=== PATIENT | male | born 1940 | race Caucasian/White ===

== ENCOUNTER 2018-05-29 13:56 | Emergency (ER) | payer MEDICARE, OTHER ==
[2018-05-29] MEDS ORDERED: cefTRIAXone(*) 1 GM in NS 0.9% 50 ML* 50 ML IVPB ONE (14:29)
[2018-05-29] MEDS ORDERED: NS 0.9% 1000 ML** 1,000 ML IV.FLUID IV ONE (14:29)
--- NOTE | 2018-05-29 14:30 | ED ---
Abdominal Pain/Male - HPI Summary HPI Summary: This patient is a 77 year old M presenting to [facility] accompanied by family with a chief complaint epigastric pain radiating to RUQ that began approximately 3 days ago. The patient rates the pain 4/10 in severity. Symptoms aggravated by nothing. Symptoms alleviated by nothing. Patient reports malaise, weakness, rigors, chills, dark orange urine, and slight cough. Patient denies dysuria, diarrhea, nasal discharge and sore throat. - History of Current Complaint Chief Complaint: EDFluSymptoms Stated Complaint: CHILLS, FEVER,COUGH Time Seen by Provider: 05/29/18 14:16 Hx Obtained From: Patient Onset/Duration: Sudden Onset, Lasting Days, Still Present Timing: Constant Severity Initially: Moderate Severity Currently: Moderate Pain Intensity: 4 Pain Scale Used: 0-10 Numeric Location: Epigastric Radiates: Yes Radiates to: Other - RUQ Aggravating Factor(s): Nothing Alleviating Factor(s): Nothing Associated Signs And Symptoms: Positive: Other - Positive malaise, pain, rigors , chills, and dark orange urine - Allergies/Home Medications Allergies/Adverse Reactions: Allergies Allergy/AdvReac Type Severity Reaction Status Date / Time meprobamate Allergy Intermediate Rash Verified 05/29/18 14:37 tetracycline Allergy Unknown Unknown Verified 05/29/18 14:37 Reaction Details chlordiazepoxide Allergy Unknown Verified 05/29/18 14:07 [From Librium] Reaction Details Home Medications: Home Medications Aspirin 81 mg CHEW TAB* [Aspirin Low Dose TAB*] 81 mg PO DAILY 05/29/18 [ History Confirmed 05/29/18] Saw Wildwood Fruit [Saw Wildwood] 450 mg PO DAILY 05/29/18 [History Confirmed ] PMH/Surg Hx/FS Hx/Imm Hx Previously Healthy: Yes Cardiovascular History: Denies: Hx Pacemaker/ICD Musculoskeletal History: Denies: Hx Rheumatoid Arthritis, Hx Osteoporosis Sensory History: Denies: Hx Hearing Aid Psychiatric History: Denies: Hx Panic Disorder - Surgical History Surgery Procedure, Year, and Place: RUPTURED EAR DRUM SURGERY A CHILD. CLEFT PALATE. T&A. APPENDIX. RT KNEE SURGERY 1970. RT CARPAL TUNNEL . RT INGUINAL HERNIA REPAIR . RT SHOULDER EXPLORATORY SURGERY . LT CARPAL TUNNEL 4-5 YRS AGO Infectious Disease History: No Infectious Disease History: Denies: Traveled Outside the [place] in Last 30 Days - Family History Known Family History: Positive: Other - Colon polyps - Social History Occupation: Retired Lives: With Family Review of Systems Positive: Other - Positive malaise Negative: Sore Throat, Nasal Discharge Positive: Cough Positive: Abdominal Pain. Negative: Diarrhea Genitourinary: Other - Positive dark orange urine Negative: dysuria Positive: Other - Positive rigors Positive: Weakness All Other Systems Reviewed And Are Negative: Yes Physical Exam - Summary Physical Exam Summary: VITAL SIGNS: Reviewed. GENERAL: Patient is a well-developed and nourished male who is lying comfortable in the stretcher. Patient is not in any acute respiratory distress. HEAD AND FACE: No signs of trauma. No ecchymosis, hematomas or skull depressions. No sinus tenderness. EYES: PERRLA, EOMI x 2, No injected conjunctiva, no nystagmus. EARS: Hearing grossly intact. Ear canals and tympanic membranes are within normal limits. MOUTH: Oropharynx within normal limits. Oral mucosa is completely dry. Pharynx has slight erythema but no exudate. NECK: Supple, trachea is midline, no adenopathy, no JVD, no carotid bruit, no c- spine tenderness, neck with full ROM. CHEST: Symmetric, no tenderness at palpation LUNGS: Clear to auscultation bilaterally. No wheezing or crackles. CVS: Regular rate and rhythm, S1 and S2 present, no murmurs or gallops appreciated. ABDOMEN: Soft, Tenderness in epigastric area. No signs of distention. No rebound no guarding, and no masses palpated. Bowel sounds are normal. EXTREMITIES: FROM in all major joints, no edema, no cyanosis or clubbing. NEURO: Alert and oriented x 3. No acute neurological deficits. Speech is normal and follows commands. SKIN: Dry and warm Triage Information Reviewed: Yes Vital Signs On Initial Exam: Initial Vitals Temp Pulse Resp BP Pulse Ox 101.6 F 98 25 105/63 98 05/29/18 14:03 05/29/18 14:03 05/29/18 14:03 05/29/18 14:03 05/29/18 14:03 Vital Signs Reviewed: Yes Diagnostics - Vital Signs Vital Signs Temp Pulse Resp BP Pulse Ox 05/29/18 14:03 101.6 F 98 25 105/63 98 - Laboratory Result Diagrams: 05/29/18 14:44 05/29/18 14:44 Lab Statement: Any lab studies that have been ordered have been reviewed, and results considered in the medical decision making process. - Radiology Chest XR Radiology Interpretation Completed By: Radiologist Summary of Radiographic Findings: CXR reveals, per radiologist, low lung volumes , small bibasilar infiltrates. ED physician has reviewed this radiology report. - EKG 1435 Cardiac Rate: Tachycardia EKG Rhythm: Sinus Rhythm - 102 BPM Summary of EKG Findings: An EKG taken at 1438 reveals sinus tachycardia at 102 BPM with RBBB. - Additional Comments Diagnostic Additional Comments: Abdomen US reveals, per radiologist, 1. CHOLELITHIASIS, SLUDGE AND GALLBLADDER WALL THICKENING, THE POSSIBILITY OF ACUTE CHOLECYSTITIS CANNOT BE EXCLUDED. 2. INTRA AND EXTRAHEPATIC DUCTAL DISTENTION AND MILD PANCREATIC DUCTAL DISTENTION WORRISOME FOR A PANCREATIC MASS OR A CALCULUS IN THE DISTAL COMMON BILE DUCT. RECOMMEND A THREE-PHASE CONTRAST ENHANCED CT OF THE ABDOMEN FOR FURTHER EVALUATION. ED physician has reviewed this radiology report. Abdominal Pain Fem Course/Dx - Course Assessment/Plan: This patient is a 77-year-old male who presents to the emergency department with a chief complaint of having epigastric pain about 3 days ago which is subsided and the pain radiated to the right rib cage area. He also reports that Wednesday night and Wednesday night the patient developed rigors and possibly a fever. He has been having runny nose and body aches. She denies any cough, denies any diarrhea denies any urinary symptoms. His vital signs alert for sepsis therefore we started the sepsis protocol. The patient was started on IV fluids 30 ccs per KG, since he seems to be a respiratory issue patient also was given Rocephin for antibiotics. This was given after we obtained blood cultures. Blood work without any significant abnormality except for fibrinogen of 639, sodium 133, chloride 100, BUN is 36, creatinine is 1.42, glucose 140, lactic acid is 2.1, total bili 7.4, AST 128, AST 224, alkaline phosphatase is 191. CRP is 216 and total protein 6.3. Influenza A any B is negative. CXR impresion: Low lung volumes, small bibasilar infiltrates. Patients LFTs are increase and reexamined the patient and he has mild right upper quadrant pain therefore, I decided to do a viral upper quadrant ultrasound. The patient also was given an additional liter of IV fluids. I started the patient is Zosyn to cover for an abdominal infection. Right upper quadrant ultrasound impression: Cholelithiasis, sludge and gallbladder wall thickening. Possibility of an acute cholecystitis cannot be excluded. Rika and extrahepatic ductal distention and mild pancreatic ductal distention and worrisome for a pancreatic mass or calculus in the distal common bile duct. At this point I discussed my physical exam and findings with and Dr. Matias from surgery and he recommends an ERCP. I also discussed the case with Dr. Avina and she is unable to do the ERCP. Therefore I contacted [facility] and discussed the case with Dr. Resendiz hand cloth examiner and he agrees to accept the patient to his services. Before transfer the patients blood pressure decreased after 5 L of IV fluids, therefore we started on Levophed. Dr. Hall the ER attending was able to place a central line to and Levophed was continued. At this point the patient will be transferred via helicopter. Patient and patients and agrees with the transfer. Patient is mentating well and is still alert and oriented 3. The patient is to hypotensive but he is in no epinephrine. - Diagnoses Differential Diagnosis/HQI/PQRI: Gall Bladder Disease, Pneumonia, Urinary Tract Infection, Other - Cholecystitis, Cholangitis, Pancreatitis Provider Diagnoses: Cholangitis, Cholecystitis, Pancreatitis - Provider Notifications Discussed Care Of Patient With: Sam Cagle Time Discussed With Above Provider: 17:10 Instructed by Provider To: Other - Consult with Dr. Cagle (surgery) at 1709. He requested an emergency ERCP. Consult with Dr. Avina (GI) at 1713. She agreed the patient needs an emergency ERCP, but she does not do them. Consult with Dr. Umana (ICU attending at [facility]) at 1820. He agrees to accept the patient for transfer. - Critical Care Time Critical Care Time: 75-104 min Discharge - Sign-Out/Discharge Documenting (check all that apply): Patient Departure - Transfer to [facility] Patient Received Moderate/Deep Sedation with Procedure: No - Discharge Plan Condition: Stable Disposition: TRANS HIGHER LVL OF CARE FAC Referrals: Chaparrita Scales MD [Primary Care Provider] - - Billing Disposition and Condition Condition: STABLE Disposition: Trans Higher Lvl of Care Fac - Attestation Statements Document Initiated by Scribe: Yes Documenting Scribe: Jo-Ann Mccrary Provider For Whom Scribe is Documenting (Include Credential): Dr. Neno Winter MD Scribe Attestation: I, Jo-Ann Mccrary, scribed for Dr. Neno Winter MD on 05/29/18 at 1909. Scribe Documentation Reviewed: Yes Provider Attestation: The documentation as recorded by the scribeJo-Ann accurately reflects the service I personally performed and the decisions made by me, Dr. Neno Winter MD Status of Scribe Document: Viewed
[2018-05-29 14:55] LABS: ABS Basophils 0 10^3/ul (0-0.2); ABS Eosinophils 0 10^3/ul (0-0.6); ABS Lymphocytes 0.2 10^3/ul (1.0-4.8); ABS Monocytes 0 10^3/ul (0-0.8); ABS Neutrophils 3.9 10^3/ul (1.5-7.7); ABS Nucleated RBC 0 10^3/ul; Eosinophil % 0.1 %; Hematocrit 41 % (42-52); Hemoglobin 14.3 g/dl (14.0-18.0); Lymphocyte % 4.2 %; Mean Corpuscular HGB Conc 35 g/dl (31-36); Mean Corpuscular Hemoglobin 31 pg (27-31); Mean Corpuscular Volume 90 fL (80-94); Mean Platelet Volume 7.8 fL (7.4-10.4); Nucleated Red Blood Cells % 0.1; Platelet Count 195 10^3/ul (150-450); Red Blood Count 4.59 10^6/ul (4.00-5.40); Red Cell Distribution Width 14 % (10.5-15); White Blood Count 4.1 10^3/ul (3.5-10.8)
[2018-05-29 15:09] LABS: Influenza A Molecular NEGATIVE (Negative); Influenza B Molecular NEGATIVE (Negative)
[2018-05-29 15:13] LABS: Activated Partial Thrombo Time 29.7 seconds (26.0-36.3); Fibrinogen 689.8 mg/dL (110.8-404.3); INR 1.38 (0.77-1.02)
[2018-05-29 15:16] LABS: Albumin 3.7 g/dL (3.2-5.2); Albumin/Globulin Ratio 1.4 (1-3); BUN/Creatinine Ratio 25.4 (8-20); C Reactive Protein 216.08 mg/L (<8.01); Calcium 9.9 mg/dL (8.6-10.3); EGFR African American 58.3 (>60); EGFR Non-African American 48.2 (>60); Globulin 2.6 g/dL (2-4); Potassium 4.3 mmol/L (3.5-5.0); Total Bilirubin 7.4 mg/dL (0.2-1.0); Total Protein 6.3 g/dL (6.4-8.9)
[2018-05-29 15:17] LABS: Troponin I 0.02 ng/mL (<0.04)
[2018-05-29] MEDS ORDERED: Ibuprofen TAB* 800 MG PO ONE (15:28)
[2018-05-29 16:13] LABS: Erythrocyte Sed Rate 49 mm/Hr (0-40)
[2018-05-29] MEDS ORDERED: Piperacillin/Tazobac ADVAN(*) 3.375 GM in NS 0.9% 100 ML* 100 ML IVPB ONE (16:14)
[2018-05-29] MEDS ORDERED: Piperacillin/Tazobac (*) 3.375 GM BAG ONE (16:27)
[2018-05-29] MEDS ORDERED: NS 0.9% 1000 ML** 1,000 ML IV ONE ×2 (16:55→18:49)
[2018-05-29 16:59] LABS: Urine Appearance Cloudy; Urine Bacteria Absent (Absent); Urine Bilirubin 2+ (Negative); Urine Blood 1+ (Negative); Urine Color Amber; Urine Glucose Negative (Negative); Urine Ketones Negative (Negative); Urine Nitrite Negative (Negative); Urine Protein 1+(30 mg/dL) (Negative); Urine Red Blood Cell Trace(0-2/hpf) (Absent); Urine Specific Gravity 1.017 (1.010-1.030); Urine Squamous Epithelial Cell Present (Absent); Urine Urobilinogen Positive (Negative); Urine White Blood Cell 2+(11-20/hpf) (Absent)
[2018-05-29] MEDS ORDERED: NS 0.9% 1000 ML** 2,000 ML IV ONE (17:46)
[2018-05-29] MEDS ORDERED: Norepinephrine 16MCG/ML IVPRE* 4,000 MCG/250 ML BAG IV ONE ×2 (17:51→18:00)
[2018-05-29] MEDS ORDERED: Vasopressin* 100 UNITS in D5W 250 ML BAG* 245 ML IVPB SCH ×4 (19:00)
--- NOTE | 2018-05-29 19:04 | CONSULT ---
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 After gowning and gloving, the patient was prepped and draped over the right internal jugular vein. Ultrasound was used to locate the vein in the artery or vein was noted to be compressible lateral and anterior to the artery. The vein was entered easily after numbing the skin using an 18-gauge needle. However I was unable to pass the Seldinger wire on 2 tries. I went slightly inferior on the third try and the wire passed easily a triple lumen was then passed over the line, sutured in place and dressed. He tolerated the procedure very well however his pressure did remain low and he remained mildly tachycardic. He was awake and alert the whole time and conversant in no apparent distress. Diagnosis Central line placement.
[2018-05-29 19:33] VITALS: BP 74/62
--- NOTE | 2018-05-29 23:08 | PN ---
Progress Note - Progress Note Date of Service: 05/29/18 Note: got call from [facility] at 11:05pm that preliminary culture positive for gram neg bacilli. patient was just transferred to [facility]. will have Rosaline fax results to [facility].
== END 2018-05-29 19:36 | disposition short-term general hospital (02) ==
LOC: ED 13:56
DX: K83.09 Other cholangitis (principal); K81.9 Cholecystitis, unspecified; K85.90 Acute pancreatitis without necrosis or infection, unspecified; I45.10 Unspecified right bundle-branch block; R00.0 Tachycardia, unspecified
CPT/HCPCS: 36415; 71046; 76705; 80053; 81003; 81015; 82150; 82248; 82550; 83605; 83690; 83880; 84484; 85025; 85384; 85610; 85652; 85730; 86140; 87040; 87077; 87086; 87186; 87205; 93005; 96361; 96374; 96375; 99285; A9270-GY; J0696; J2543

== ENCOUNTER 2018-06-09 08:13 | Inpatient (IN) | payer MEDICARE, OTHER ==
[2018-06-09] MEDS ORDERED: Acetaminophen TAB* 325 MG PO PRN (13:02)
[2018-06-09] MEDS ORDERED: Senna TAB PO PRN (13:02)
--- NOTE | 2018-06-09 14:45 | HP ---
ADMISSION HISTORY AND PHYSICAL: DATE OF ADMISSION: 06/09/18 REASON FOR ADMISSION: Septic shock secondary to ascending cholangitis. HISTORY OF PRESENT ILLNESS: Lux Urbina is a 77-year-old male. He has a medical history significant for BPH and arthritis. He presented to [facility] on 05/29/18 complaining of abdominal pain and several days of fever. He was found to be septic and transferred to [facility]. He required pressor support. He was taken to the operating room for an ERCP during which he had a pulseless electrical activity arrest with return of spontaneous circulation achieved in 10 minutes with CPR and epinephrine. Following that, they went through with the ERCP. A large common bile duct stone was removed and pus from the ampulla was drained and a biliary stent was placed. Blood cultures prior to transfer had been positive for Klebsiella and he was placed on IV Zosyn. He was transferred to the medical floor on . However, during his ICU stay, he had acute kidney injury and hepatic injury likely secondary to the combination of the septic shock and PEA arrest. His liver function tests and creatinine generally improved. He was found on echo to have an ejection fraction of 30% on 05/30/18, but repeat echo several days later showed an ejection fraction of 45%. Cardiology was consulted and they recommended a nuclear stress test as an outpatient. He was also found to have C. diff on 06/06/18 and was started on p.o. vancomycin. The infectious disease service at [facility] recommended IV Zosyn until 06/08/18 and that was discontinued and then to remain on oral vancomycin until 06/17/18. He was seen by Physical Therapy and Occupational Therapy and felt to be weakened from the hospitalization. It was felt that he would need inpatient rehab. Also of note is it was recommended that the patient have a cholangiogram done by Interventional Radiology in 4 weeks and evaluation by a surgeon for possible cholecystectomy in 4 weeks after his cholangiogram. He will also need an ERCP for the biliary stent removal in 6 weeks. PAST MEDICAL HISTORY: Significant for arthritis as well as prostatic hypertrophy. CURRENT MEDICATIONS: Include: 1. Flomax. 2. VESIcare. 3. Zocor. 4. Prevacid. 5. He is also on Flovent. 6. Baby aspirin every day. 7. Heparin for DVT prophylaxis. ALLERGIES: Include MEPROBAMATE as well as TETRACYCLINE. SOCIAL HISTORY: He is a nonsmoker, nondrinker. Lives with his , Mallory, in a 2-story house. He has 2 children, one of whom lives in [facility] and the other one who lives in the [place]. 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 REVIEW OF SYSTEMS: The patient reports no current shortness of breath or chest pain. PHYSICAL EXAMINATION VITAL SIGNS: The patient's temperature is 98.0, blood pressure is 147/79, pulse 57, respirations 16. HEENT: His extraocular movements are intact. Tongue is midline. NECK: Supple. LUNGS: Sound clear to auscultation bilaterally. HEART: Sounds were regular. S1 and S2 were audible. ABDOMEN: He does have a cholecystostomy tube. Abdomen appears to be soft. EXTREMITIES: He has got 1+ edema in both feet. Peripheral pulses were intact. NEUROLOGIC: He is awake, alert, oriented. Muscle strength appears to be about 4+/5 throughout. FUNCTIONAL EXAM: He transfers with min assist. ASSESSMENT: Septic shock secondary to ascending cholangitis. Status post ERCP. His course was complicated by a pulseless electrical activity arrest with return of spontaneous circulation after CPR and epinephrine. PLAN: Integrate him into a comprehensive and therapeutic rehab program with the following goals: 1. Physical Therapy will see the patient. They are going to work on functional transfer training, ambulation training with a walker. 2. Occupational Therapy will see the patient, work on his activities of daily living including toileting and toilet transfers. 3. Heparin for DVT prophylaxis. 4. Follow his LFTs as well as his renal function. 5. Regular diet. His bowels will be regulated. 6. For his C. diff, we will continue oral vancomycin. 7. We will continue baby aspirin every day. We will consult Cardiology as needed. 8. fiscal services manager will be closely involved to make sure that any services and equipment the patient requires are in place prior to discharge. 9. Family training as appropriate. 10. Home with appropriate services. ESTIMATED LENGTH OF STAY: 10 days. [id number]/[facility] #: [id number] JOSE ROBERTO
--- NOTE | 2018-06-09 14:56 | PMRUTEAM ---
PMRU: Team Meeting Current Status: Occupational Therapy: Current Status Upper Body Dressing Min Assist Lower Body Dressing Mod Assist Bathing Min Assist,Mod Assist Toileting Contact Guard Assist Toilet Transfer Contact Guard Assist Eating Ind with Adaptive Equip PHYSICAL THERAPY: CG Transfers, CG Ambulation with FWW 200 feet CG-Min Assist Stairs, Min Assist Bed mobility Goals: Occupational Therapy: Initial Goals Goals to be Completed in (Days 7-10 ) Upper Body Bathing Routine Modified Independent with Lower Body Bathing Routine Modified Independent with Upper Body Dressing Routine Independent Lower Body Dressing Routine Modified Independent with Toilet Hygeine and Clothing Modified Independent with Management Routine Toilet Transfer Routine Modified Independent with Tub Transfer Routine Modified Independent with Functional Transfers for ADL Modified Independent with Grooming Routine Independent Feeding Routine Independent Light Housekeeping Tasks Modified Independent with Light Housekeeping Tasks light meal prep with Isadora Assistive Devices Medicine Note: Length of Stay: 7 days Anticipated Discharge Destination: Tentative Discharge Date: 06/16/18 Discharged to: Home
[2018-06-09] MEDS: Heparin VIAL(*) 5000 UNITS/ML VIAL (FIVE THOUSAND) SUBCUT SCH (16:36)
[2018-06-09] MEDS: Vancomycin CAP* 125 MG CAP PO SCH ×2 (16:40→20:57)
[2018-06-09] MEDS: Atorvastatin* 10 MG TAB PO SCH (16:40)
[2018-06-09] MEDS ORDERED: Albuterol HFA INHALER* 8 gm MDI INH PRN (20:22)
[2018-06-09] MEDS: Mometasone 220 MCG MDI INH SCH (20:57)
[2018-06-09] MEDS: Docusate CAP* 100 MG PO SCH (21:29)
[2018-06-10] MEDS: Ibuprofen TAB* 200 MG PO PRN ×2 (00:05→21:54)
[2018-06-10] MEDS: Heparin VIAL(*) 5000 UNITS/ML VIAL (FIVE THOUSAND) SUBCUT SCH ×4 (00:10→21:56)
[2018-06-10] MEDS: Zolpidem TAB* 10 MG PO PRN ×2 (00:18→21:55)
[2018-06-10 05:48] LABS: ABS Basophils 0 10^3/ul (0-0.2); ABS Eosinophils 0.3 10^3/ul (0-0.6); ABS Lymphocytes 1.5 10^3/ul (1.0-4.8); ABS Monocytes 1.3 10^3/ul (0-0.8); ABS Neutrophils 7.2 10^3/ul (1.5-7.7); ABS Nucleated RBC 0 10^3/ul; Eosinophil % 2.9 %; Hematocrit 35 % (42-52); Hemoglobin 11.3 g/dl (14.0-18.0); Lymphocyte % 14.5 %; Mean Corpuscular HGB Conc 33 g/dl (31-36); Mean Corpuscular Hemoglobin 31 pg (27-31); Mean Corpuscular Volume 94 fL (80-94); Mean Platelet Volume 8.1 fL (7.4-10.4); Nucleated Red Blood Cells % 0; Platelet Count 188 10^3/ul (150-450); Red Blood Count 3.67 10^6/ul (4.00-5.40); Red Cell Distribution Width 15 % (10.5-15); White Blood Count 10.4 10^3/ul (3.5-10.8)
[2018-06-10 05:58] LABS: Albumin 2.7 g/dL (3.2-5.2); CO2 Carbon Dioxide 21 mmol/L (22-32); Calcium 8.8 mg/dL (8.6-10.3); Chloride 108 mmol/L (101-111); Sodium 137 mmol/L (135-145)
[2018-06-10 06:04] LABS: ALT 32 U/L (7-52); Albumin/Globulin Ratio 1.2 (1-3); Alkaline Phosphatase 81 U/L (34-104); BUN/Creatinine Ratio 23.3 (8-20); Blood Urea Nitrogen 24 mg/dL (6-24); EGFR African American 84.5 (>60); EGFR Non-African American 69.8 (>60); Globulin 2.2 g/dL (2-4); Glucose 95 mg/dL (70-100); Total Protein 4.9 g/dL (6.4-8.9)
[2018-06-10 06:06] LABS: Anion Gap 8 mmol/L (2-11)
[2018-06-10 07:39] LABS: Potassium Redraw 4.2 mmol/L (3.5-5.0)
[2018-06-10] MEDS: SOLIFENACIN 10 MG PO SCH (08:08)
[2018-06-10] MEDS: Tamsulosin CAP* 0.4 MG PO SCH (08:13)
[2018-06-10] MEDS: Vancomycin CAP* 125 MG CAP PO SCH ×4 (08:13→21:54)
[2018-06-10] MEDS: Aspirin EC TAB* 81 MG TAB.EC PO SCH (08:13)
[2018-06-10] MEDS: Pantoprazole TAB * 40 MG TAB PO SCH (08:13)
[2018-06-10] MEDS: Docusate CAP* 100 MG PO SCH ×2 (08:18→21:54)
--- NOTE | 2018-06-10 10:43 | PN ---
Subjective Date of Service: 06/10/18 Interval History: HOSPITALIST PROGRESS NOTE Patient seen and examined at bedside. Care reviewed and d/w Jo-Ann Rowe RN. He feels well today, "improving everyday". Able to sleep from 1 to 7AM without interruptions, food "tastes good again". Denies pain. Family History: Unchanged from Admission Social History: Unchanged from Admission Past Medical History: Unchanged from Admission Objective Active Medications: Acetaminophen (Tylenol Tab*) 650 mg PO Q6H PRN PRN Reason: FEVER/PAIN Albuterol (Ventolin Hfa Inhaler*) 2 puff INH Q6H PRN PRN Reason: WHEEZING Aspirin (Aspirin Ec Tab*) 81 mg PO DAILY [facility] Last Admin: 06/10/18 08:13 Dose: 81 mg Atorvastatin Calcium (Lipitor*) 15 mg PO 1700 [facility] Last Admin: 06/09/18 16:40 Dose: 15 mg Docusate Sodium (Colace Cap*) 100 mg PO BID [facility] Last Admin: 06/10/18 08:18 Dose: Not Given Heparin Sodium (Porcine) (Heparin Vial(*)) 5,000 units SUBCUT Q8HR [facility] Last Admin: 06/10/18 05:15 Dose: 5,000 units Ibuprofen (Advil Tab*) 200 mg PO Q6H PRN PRN Reason: PAIN Last Admin: 06/10/18 00:05 Dose: 200 mg Mometasone Furoate (Asmanex 220 Mcg Mdi *) 1 puff INH DAILY@1900 [facility] Last Admin: 06/09/18 20:57 Dose: 1 puff Pantoprazole Sodium (Protonix Tab*) 40 mg PO DAILY [facility] Last Admin: 06/10/18 08:13 Dose: 40 mg Senna (Senokot Tab*) 2 tab PO BEDTIME PRN PRN Reason: CONSTIPATION Solifenacin (Vesicare(Nf)) 10 mg PO DAILY [facility] Last Admin: 06/10/18 08:08 Dose: Not Given Tamsulosin HCl (Flomax Cap*) 0.4 mg PO DAILY [facility] Last Admin: 06/10/18 08:13 Dose: 0.4 mg Vancomycin HCl (Vancomycin Cap*) 125 mg PO QID [facility] Stop: 06/17/18 23:00 Last Admin: 06/10/18 08:13 Dose: 125 mg Zolpidem Tartrate (Ambien Tab*) 10 mg PO BEDTIME PRN PRN Reason: SLEEP Last Admin: 06/10/18 00:18 Dose: 10 mg Vital Signs - 8 hr 06/10/18 05:35 Temperature 99.0 F Pulse Rate 71 Respiratory 18 Rate Blood Pressure 142/75 (mmHg) O2 Sat by Pulse 97 Oximetry Oxygen Devices in Use Now: None Appearance: Elderly gentleman sitting up in a recliner in NAD. Eyes: No Scleral Icterus Ears/Nose/Mouth/Throat: Mucous Membranes Moist Neck: Trachea Midline Respiratory: Symmetrical Chest Expansion and Respiratory Effort, Clear to Auscultation Cardiovascular: RRR - Normal S1 and S2 Abdominal: - - Soft, cholecystostomy tube in place, covered at this time as he' s getting ready to take a shower. 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 - Patient Problems (1) Cholelithiasis Comment: - Tentative plan for cholangiogram in 4 weeks, ERCP for biliary stent removal in 6 weeks, and surgery evaluation for cholecystectomy 4 weeks after cholangiogram. (2) C. difficile colitis Comment: - Continue Vancomycin. (3) Cardiomyopathy Comment: - In the setting of septic shock and cardiac arrest, EF went down to 30 %. Last one was up to 45%. - Will need Cardiology f/u as outpatient. - Continue Aspirin, Atorvastatin. (4) BPH (benign prostatic hyperplasia) Comment: - Continue Tamsulosin. (5) DVT prophylaxis Comment: - SQ heparin. (6) Full code status
[2018-06-10] MEDS: Atorvastatin* 10 MG TAB PO SCH (17:35)
[2018-06-10] MEDS: Mometasone 220 MCG MDI INH SCH (19:30)
[2018-06-11] MEDS: Ibuprofen TAB* 200 MG PO PRN ×3 (03:54→20:54)
[2018-06-11] MEDS: Heparin VIAL(*) 5000 UNITS/ML VIAL (FIVE THOUSAND) SUBCUT SCH ×3 (06:26→22:51)
[2018-06-11] MEDS: SOLIFENACIN 10 MG PO SCH (07:12)
[2018-06-11] MEDS: Aspirin EC TAB* 81 MG TAB.EC PO SCH (09:05)
[2018-06-11] MEDS: Tamsulosin CAP* 0.4 MG PO SCH (09:05)
[2018-06-11] MEDS: Vancomycin CAP* 125 MG CAP PO SCH ×4 (09:05→20:53)
[2018-06-11] MEDS: Docusate CAP* 100 MG PO SCH ×3 (09:05→20:53)
[2018-06-11] MEDS: Pantoprazole TAB * 40 MG TAB PO SCH (09:05)
--- NOTE | 2018-06-11 12:01 | PN ---
Subjective Date of Service: 06/11/18 Interval History: HOSPITALIST PROGRESS NOTE Patient seen and examined at bedside. Care reviewed and d/w Jo-Ann Rowe RN. He offers no new complaints today. In good spirits, denies N/V, tolerating diet well. Has some chest pain with cough and requests Ibuprofen for it. Family History: Unchanged from Admission Social History: Unchanged from Admission Past Medical History: Unchanged from Admission Objective Active Medications: Acetaminophen (Tylenol Tab*) 650 mg PO Q6H PRN PRN Reason: FEVER/PAIN Albuterol (Ventolin Hfa Inhaler*) 2 puff INH Q6H PRN PRN Reason: WHEEZING Aspirin (Aspirin Ec Tab*) 81 mg PO DAILY [facility] Last Admin: 06/11/18 09:05 Dose: 81 mg Atorvastatin Calcium (Lipitor*) 15 mg PO 1700 [facility] Last Admin: 06/10/18 17:35 Dose: 15 mg Docusate Sodium (Colace Cap*) 100 mg PO BID [facility] Last Admin: 06/11/18 09:06 Dose: Not Given Heparin Sodium (Porcine) (Heparin Vial(*)) 5,000 units SUBCUT Q8HR [facility] Last Admin: 06/11/18 06:26 Dose: 5,000 units Ibuprofen (Motrin Tab*) 400 mg PO Q6H PRN PRN Reason: moderate pain Ibuprofen (Advil Tab*) 200 mg PO Q6H PRN PRN Reason: mild Pain Mometasone Furoate (Asmanex 220 Mcg Mdi *) 1 puff INH DAILY@1900 [facility] Last Admin: 06/10/18 19:30 Dose: 1 puff Pantoprazole Sodium (Protonix Tab*) 40 mg PO DAILY [facility] Last Admin: 06/11/18 09:05 Dose: 40 mg Senna (Senokot Tab*) 2 tab PO BEDTIME PRN PRN Reason: CONSTIPATION Solifenacin (Vesicare(Nf)) 10 mg PO DAILY [facility] Last Admin: 06/11/18 07:12 Dose: Not Given Tamsulosin HCl (Flomax Cap*) 0.4 mg PO DAILY [facility] Last Admin: 06/11/18 09:05 Dose: 0.4 mg Vancomycin HCl (Vancomycin Cap*) 125 mg PO QID [facility] Stop: 06/17/18 23:00 Last Admin: 06/11/18 09:05 Dose: 125 mg Zolpidem Tartrate (Ambien Tab*) 10 mg PO BEDTIME PRN PRN Reason: SLEEP Last Admin: 06/10/18 21:55 Dose: 10 mg Vital Signs - 8 hr 06/11/18 06:28 Temperature 98.0 F Pulse Rate 58 Respiratory 18 Rate Blood Pressure 142/83 (mmHg) O2 Sat by Pulse 99 Oximetry Oxygen Devices in Use Now: None Appearance: Pleasant elderly gentleman sitting up in a chair in NAD. 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 - Patient Problems (1) Cholelithiasis Comment: - Tentative plan for cholangiogram in 4 weeks, ERCP for biliary stent removal in 6 weeks, and surgery evaluation for cholecystectomy 4 weeks after cholangiogram. (2) C. difficile colitis Comment: - Continue Vancomycin. (3) Cardiomyopathy Comment: - In the setting of septic shock and cardiac arrest, EF went down to 30 %. Last one was up to 45%. - Will need Cardiology f/u as outpatient. - Continue Aspirin, Atorvastatin. (4) BPH (benign prostatic hyperplasia) Comment: - Continue Tamsulosin. - Can use his own Vesicare. (5) DVT prophylaxis Comment: - SQ heparin. (6) Full code status
[2018-06-11] MEDS ORDERED: SOLIFENACIN 5 MG PO ONE (12:16)
[2018-06-11] MEDS: Atorvastatin* 10 MG TAB PO SCH (17:12)
[2018-06-11] MEDS: SOLIFENACIN 5 MG PO SCH (20:52)
[2018-06-11] MEDS: Mometasone 220 MCG MDI INH SCH (20:57)
[2018-06-11] MEDS: Zolpidem TAB* 10 MG PO PRN (22:51)
[2018-06-12] MEDS: Heparin VIAL(*) 5000 UNITS/ML VIAL (FIVE THOUSAND) SUBCUT SCH ×3 (05:44→21:25)
[2018-06-12] MEDS: Aspirin EC TAB* 81 MG TAB.EC PO SCH (08:25)
[2018-06-12] MEDS: Ibuprofen TAB* 200 MG PO PRN ×2 (08:26→21:24)
[2018-06-12] MEDS: Docusate CAP* 100 MG PO SCH ×2 (08:26→21:14)
[2018-06-12] MEDS: Tamsulosin CAP* 0.4 MG PO SCH (08:27)
[2018-06-12] MEDS: Pantoprazole TAB * 40 MG TAB PO SCH (08:27)
[2018-06-12] MEDS: Vancomycin CAP* 125 MG CAP PO SCH ×4 (08:27→21:24)
[2018-06-12] MEDS ORDERED: Solifenacin(NF) 5 MG TAB PO SCH (09:00)
--- NOTE | 2018-06-12 15:53 | PN ---
Progress Note Date of Service: 06/12/18 Note: TRIPP SEGURA was visited. Nursing notes read and reviewed. He had an uneventful few days. He is able to read and his concentration is better. He feels emotionally well. Current Medications: Active Medications Generic Name Dose Route Start Last Admin Trade Name Freq PRN Reason Stop Dose Admin Acetaminophen 650 mg 06/09/18 13:02 Tylenol Tab* PO Q6H PRN FEVER/PAIN Albuterol 2 puff 06/09/18 20:22 Ventolin Hfa Inhaler* INH Q6H PRN WHEEZING Aspirin 81 mg 06/10/18 09:00 06/12/18 08:25 Aspirin Ec Tab* PO 81 mg DAILY SACHIN Administration Atorvastatin Calcium 15 mg 06/09/18 17:00 06/11/18 17:12 Lipitor* PO 15 mg 1700 SACHIN Administration Docusate Sodium 100 mg 06/09/18 21:00 06/12/18 08:26 Colace Cap* PO Not Given BID SACHIN Heparin Sodium (Porcine) 5,000 units 06/09/18 14:00 06/12/18 13:56 Heparin Vial(*) SUBCUT 5,000 units Q8HR SACHIN Administration Ibuprofen 400 mg 06/11/18 11:36 Motrin Tab* PO Q6H PRN moderate pain Ibuprofen 200 mg 06/11/18 11:37 06/12/18 08:26 Advil Tab* PO 200 mg Q6H PRN Administration mild Pain Mometasone Furoate 1 puff 06/09/18 19:00 06/11/18 20:57 Asmanex 220 Mcg Mdi * INH 1 puff DAILY@1900 SACHIN Administration Pantoprazole Sodium 40 mg 06/10/18 09:00 06/12/18 08:27 Protonix Tab* PO 40 mg DAILY SACHIN Administration Senna 2 tab 06/09/18 13:02 Senokot Tab* PO BEDTIME PRN CONSTIPATION Solifenacin 5 mg 06/11/18 21:00 06/11/18 20:52 Vesicare(Nf) PO 5 mg BEDTIME SACHIN Administration Tamsulosin HCl 0.4 mg 06/10/18 09:00 06/12/18 08:27 Flomax Cap* PO 0.4 mg DAILY SACHIN Administration Vancomycin HCl 125 mg 06/09/18 17:00 06/12/18 13:56 Vancomycin Cap* PO 06/17/18 23:00 125 mg QID SACHIN Administration Zolpidem Tartrate 10 mg 06/09/18 20:21 06/11/18 22:51 Ambien Tab* PO 10 mg BEDTIME PRN Administration SLEEP Vital Signs: Vital Signs Temp Pulse Resp BP Pulse Ox 98.4 F 58 18 120/64 99 06/12/18 05:44 06/12/18 05:44 06/12/18 08:00 06/12/18 05:44 06/12/18 08:00 Exam: HEENT: EOMI LUNGS: Clear to auscultation HEART: Regular ABDOMEN: soft. Cholecystostomy tube in place NEUROLOGIC: alert and oriented. muscle strength 5/5 Assessment/Plan: 1. Septic shock due to ascending cholangitis: Received IV Zosyn at [facility]. PT/ OT 2. C diff: Vancomycin orally through June 17 3. PEA Arrest with CPR and Epi, ROSC: Will need Nuclear stress test, cardiology F/U 4. ERCP with biliary stent: LFTs have normalized. Has T-tune. GI Follow up 5. DVT Prophylaxis: Heparin S/Q 6. Advanced Directives: Full code 06/12/18 15:49
[2018-06-12] MEDS: Atorvastatin* 10 MG TAB PO SCH (17:14)
[2018-06-12] MEDS: Mometasone 220 MCG MDI INH SCH (19:06)
[2018-06-12] MEDS: SOLIFENACIN 5 MG PO SCH (21:23)
[2018-06-12] MEDS: Zolpidem TAB* 10 MG PO PRN (21:35)
[2018-06-13] MEDS: Heparin VIAL(*) 5000 UNITS/ML VIAL (FIVE THOUSAND) SUBCUT SCH ×3 (05:53→21:39)
[2018-06-13] MEDS: Docusate CAP* 100 MG PO SCH ×2 (09:35→21:39)
[2018-06-13] MEDS: Vancomycin CAP* 125 MG CAP PO SCH ×4 (09:39→21:39)
[2018-06-13] MEDS: Aspirin EC TAB* 81 MG TAB.EC PO SCH (09:39)
[2018-06-13] MEDS: Tamsulosin CAP* 0.4 MG PO SCH (09:39)
[2018-06-13] MEDS: Pantoprazole TAB * 40 MG TAB PO SCH (09:39)
[2018-06-13] MEDS: Atorvastatin* 10 MG TAB PO SCH (17:02)
[2018-06-13] MEDS: Mometasone 220 MCG MDI INH SCH (19:32)
--- NOTE | 2018-06-13 20:18 | PN ---
Progress Note Date of Service: 06/13/18 Note: TRIPP SEGURA was visited. Therapy notes read and reviewed. I spoke with Dr. Franco and Dr. Cagle who will see Yannick and determine if follow up can happen here. His T-tube site looks clean but he has tape blisters around it. Will try to minimize tape Current Medications: Active Medications Generic Name Dose Route Start Last Admin Trade Name Freq PRN Reason Stop Dose Admin Acetaminophen 650 mg 06/09/18 13:02 Tylenol Tab* PO Q6H PRN FEVER/PAIN Albuterol 2 puff 06/09/18 20:22 Ventolin Hfa Inhaler* INH Q6H PRN WHEEZING Aspirin 81 mg 06/10/18 09:00 06/13/18 09:39 Aspirin Ec Tab* PO 81 mg DAILY SACHIN Administration Atorvastatin Calcium 15 mg 06/09/18 17:00 06/13/18 17:02 Lipitor* PO 15 mg 1700 SACHIN Administration Docusate Sodium 100 mg 06/09/18 21:00 06/13/18 09:35 Colace Cap* PO Not Given BID SACHIN Heparin Sodium (Porcine) 5,000 units 06/09/18 14:00 06/13/18 13:51 Heparin Vial(*) SUBCUT 5,000 units Q8HR SACHIN Administration Ibuprofen 400 mg 06/11/18 11:36 Motrin Tab* PO Q6H PRN moderate pain Ibuprofen 200 mg 06/11/18 11:37 06/12/18 21:24 Advil Tab* PO 200 mg Q6H PRN Administration mild Pain Mometasone Furoate 1 puff 06/09/18 19:00 06/13/18 19:32 Asmanex 220 Mcg Mdi * INH 1 puff DAILY@1900 SACHIN Administration Pantoprazole Sodium 40 mg 06/10/18 09:00 06/13/18 09:39 Protonix Tab* PO 40 mg DAILY SACHIN Administration Senna 2 tab 06/09/18 13:02 Senokot Tab* PO BEDTIME PRN CONSTIPATION Solifenacin 5 mg 06/11/18 21:00 06/12/18 21:23 Vesicare(Nf) PO 5 mg BEDTIME SACHIN Administration Tamsulosin HCl 0.4 mg 06/10/18 09:00 06/13/18 09:39 Flomax Cap* PO 0.4 mg DAILY SACHIN Administration Vancomycin HCl 125 mg 06/09/18 17:00 06/13/18 17:01 Vancomycin Cap* PO 06/17/18 23:00 125 mg QID SACHIN Administration Zolpidem Tartrate 10 mg 06/09/18 20:21 06/12/18 21:35 Ambien Tab* PO 10 mg BEDTIME PRN Administration SLEEP Vital Signs: Vital Signs Temp Pulse Resp BP Pulse Ox 98.6 F 58 24 133/73 100 06/13/18 15:30 06/13/18 15:30 06/13/18 20:00 06/13/18 15:30 06/13/18 20:00 Exam: HEENT: EOMI LUNGS: Clear to auscultation HEART: Regular ABDOMEN: soft. Cholecystostomy tube in place. Some tape blisters at borders of DSD where tape was NEUROLOGIC: alert and oriented. muscle strength 5/5 Assessment/Plan: 1. Septic shock due to ascending cholangitis: Received IV Zosyn at [facility]. PT/ OT 2. C diff: Vancomycin orally through June 17 3. PEA Arrest with CPR and Epi, ROSC: Will need Nuclear stress test, cardiology F/U 4. ERCP with biliary stent: LFTs have normalized. Has T-tube. GI Follow up 5. DVT Prophylaxis: Heparin S/Q 6. Advanced Directives: Full code 06/13/18 20:19
[2018-06-13] MEDS: SOLIFENACIN 5 MG PO SCH (21:39)
[2018-06-13] MEDS: Ibuprofen TAB* 400 MG PO PRN (21:41)
[2018-06-13] MEDS: Zolpidem TAB* 10 MG PO PRN (21:46)
[2018-06-14] MEDS: Heparin VIAL(*) 5000 UNITS/ML VIAL (FIVE THOUSAND) SUBCUT SCH ×3 (05:40→20:50)
[2018-06-14] MEDS: Pantoprazole TAB * 40 MG TAB PO SCH (09:48)
[2018-06-14] MEDS: Vancomycin CAP* 125 MG CAP PO SCH ×4 (09:48→20:49)
[2018-06-14] MEDS: Tamsulosin CAP* 0.4 MG PO SCH (09:48)
[2018-06-14] MEDS: Aspirin EC TAB* 81 MG TAB.EC PO SCH (09:48)
[2018-06-14] MEDS: Docusate CAP* 100 MG PO SCH ×2 (09:49→19:23)
[2018-06-14] MEDS: Ibuprofen TAB* 200 MG PO PRN (12:09)
--- NOTE | 2018-06-14 12:24 | PMRUTEAM ---
PMRU: Team Meeting Current Status: Nursing: Current Status Skin Deviations [Left Lower Abrasion Lip] Skin Deviations [Right AC] Abrasion Skin Deviations [Abdomen] Other Skin Deviations [Right Upper Abrasion Chest] Skin Deviations [Right Groin] Rash Skin Deviations [Right Abrasion Anterior Neck] Skin Deviations [Right Upper Incision Abdomen] Skin Deviation Description [ healed Left Lower Lip] Skin Deviation Description [ irritations s/p dressing tape, per patient Right AC] scabbed, healing Skin Deviation Description [ T-tube site RLQ. insertion site slightly red with Abdomen] no drainage. areas of old blisters healing slowly. insertion site and blistered areas washed with soap and water. 2x2 applied to T tube, vaseline guaze and telfa applied to old blistered areas. tegaderms applied over the entire area Skin Deviation Description [ previous femoral artery cath site, some redness Right Groin] too Skin Deviation Description [ healing well Right Anterior Neck] Skin Deviation Description [ T-tube insertion site Right Upper Abdomen] Bladder Current Status voids in br or uses urinal Bowel Current Status declined colace this am Nutrition Current Status appetite good Medication Current Status no pain meds given this am Physical Therapy: Current Status Bed Mobility Assistance Not Tested Transfer Mobility Assistance Supervision Transfer/Bed Mobility None Recommended Devices Ambulation Assistance Supervision Ambulation Assistive Devices None Number of Feet Patient 150' Ambulated Stairs Assistance Supervision Stairs Recommended Devices One Rail Number of Stairs 13 Curb Not Tested Objective Comments patient ascends and descends stairs with CGA+1 with GB and R side rail ascending. patient attempts step over step pattern initially, but demosntrates improved stability with a step to step technique. Occupational Therapy: Current Status Upper Body Dressing Supervision Lower Body Dressing Min Assist Bathing Supervision Toileting Supervision Toilet Transfer Supervision Shower Transfer Contact Guard Assist Eating Independent Rec Therapy: Current Status Summary of Assessment and Pt. is aware of recreation and leisure services, Clinical Impression assessment has been completed. Pt. has been social during leisure visits and has activities for enjoyment in his room. Treatment Goals Pt. will engage in leisure activities while on the unit. Treatment Plan Provide RT services and encourage involvement. Social Work: Current Status Discharge Plan return home with home care svs and family support Potential for Family Training pt's family are involved and supportive Anticipated Discharge Home Destination Discharge With home care svs and family support Nutrition: Current Status Monitoring pt is consistently eating well w/regular diet. Wt is adequate, no s/sx malnutrition, and skin is intact. He denies any GI distress and is having daily BMs. Electrolyts are WNL and other labs unremarkable. No specific nutrition issues to address at this time. Possible d/c tomorrow. Goals: Physical Therapy: Initial Goals Bed Mobility Assistance Independent Transfer Mobility Assistance Independent Transfer/Bed Mobility None Recommended Devices Ambulation Independent Ambulation Recommended Devices None Ambulation Distance 150 Stairs Assistance Independent Stair Recommended Devices One Rail Number of Stairs 13 Physical Therapy: Updated Goals Bed Mobility Assistance Independent Transfer Mobility Assistance Independent Transfer/Bed Mobility None,Rolling Walker Recommended Devices Ambulation Assistance Independent Ambulation Assistive Devices None,Rolling Walker Ambulation Distance (ft) 150 Stairs Assistance Independent Stairs Recommended Devices One Rail Number of Stairs 13 Occupational Therapy: Initial Goals Goals to be Completed in (Days 7-10 ) Upper Body Bathing Routine Modified Independent with Lower Body Bathing Routine Modified Independent with Upper Body Dressing Routine Independent Lower Body Dressing Routine Modified Independent with Toilet Hygeine and Clothing Modified Independent with Management Routine Toilet Transfer Routine Modified Independent with Tub Transfer Routine Modified Independent with Functional Transfers for ADL Modified Independent with Grooming Routine Independent Feeding Routine Independent Light Housekeeping Tasks Modified Independent with Light Housekeeping Tasks light meal prep with Isadora Assistive Devices Nursing: Goals Bladder Goal independent Bowel Goal independent Nutrition Goal 100% of all meals consumed Medication Goal independent Social Work: Goals Discharge Plan return home with home care svs and family support Potential for Family Training pt's family are involved and supportive Anticipated Discharge Home Destination Discharge With home care svs and family support Care Plan: Care Plan ADL's - Improve/Maintain Start: 06/10/18 13:01 Freq: DAILY Status: Active Target: Protocol: Activity Type Activity Date Activity User E-Sign Co-Sign Detail Recorded Client Recorded Date Recorded By Document 06/13/18 14:43 [id number] 06/13/18 14:43 [id number] 06/13/18 14:43 PMRU Outcome: ADL's/ADL Transfers Orders/Interventions Occupational Therapy Evaluation & Treatment Communication Tool in Patient Room Device Yes Patient to receive OT 5x/wk for 60-120 Therex min/day Self Care Management Group Therapy UE/LE ADL's with Assist Yes: Isadora ADL Transfers with Assist Yes: Isadora Toileting: Transfers,Clothing Management Yes: Isadora ,Hygeine w/Assist Light Kitchen/Laundry w/Assist Yes: light meal prep Isadora Progression Toward Outcome/Goals Progressing Outcome/Goals Met Pt participated well in treatment session, steadier on his feet each day and with increasing activity tolerance during ADL routine. DVT Prophylaxis- Improve/Maintain Start: 06/09/18 23:08 Freq: QSHIFT Status: Active Target: Protocol: Activity Type Activity Date Activity User E-Sign Co-Sign Detail Recorded Client Recorded Date Recorded By Document 06/13/18 23:57 [id number] 06/13/18 23:58 [id number] 06/13/18 23:57 PMRU Outcome: DVT Prophylaxis Outcome/Goals Remains Free of DVT Free of complications from current DVT Complies with DVT Prophylaxis /Treatment Demonstrates Knowledge of DVT Prevention/ Treatment TEDS Stockings on Every AM, Off at HS Progression Toward Outcome/Goals Progressing Discharge Planning - Improve/Maintain Start: 06/09/18 23:08 Freq: DAILY Status: Active Target: Protocol: Activity Type Activity Date Activity User E-Sign Co-Sign Detail Recorded Client Recorded Date Recorded By Document 06/13/18 23:58 [id number] 06/13/18 23:58 [id number] 06/13/18 23:58 PMRU Outcome: Discharge Planning Update Patient Family No Outcome/Goals Demonstrates Understanding of Discharge Plan Progression Toward Outcome/Goals Progressing /GI-Improve/Maintain Start: 06/09/18 23:08 Freq: QSHIFT Status: Active Target: Protocol: Activity Type Activity Date Activity User E-Sign Co-Sign Detail Recorded Client Recorded Date Recorded By Document 06/13/18 23:57 [id number] 06/13/18 23:58 [id number] 06/13/18 23:57 PMRU Outcome: Genitourinary/ Gastrointestinal Genitourinary- Outcome/Goals Maintain/ Achieve Urinary Continence Maintain/ Achieve Adequate Urinary Output Gastrointestinal-Outcome/Goals Maintain/ Achieve Bowel Regularity in Accordance with Pt's Baseline Prevent Constipation Progression Toward Outcome/Goals - Progressing Progression Toward Outcome/Goals - GI Progressing Safety- Improve/Maintain Start: 06/09/18 23:08 Freq: QSHIFT Status: Active Target: Protocol: Activity Type Activity Date Activity User E-Sign Co-Sign Detail Recorded Client Recorded Date Recorded By Document 06/13/18 23:57 [id number] 06/13/18 23:58 [id number] 06/13/18 23:57 PMRU Outcome: Safety Outcome/Goals Remain Free of Injury or Harm Cooperates with Safety Measures for Least Restrictive Environment Prevent Falls/ Injury Progression Toward Outcome/Goals Progressing Skin- Improve/Maintain Start: 06/09/18 23:08 Freq: QSHIFT Status: Active Target: Protocol: Activity Type Activity Date Activity User E-Sign Co-Sign Detail Recorded Client Recorded Date Recorded By Document 06/13/18 23:57 [id number] 06/13/18 23:58 [id number] 06/13/18 23:57 PMRU Outcome: Skin Skin Risk Level Medium Skin Orders Dressing Change Outcome/Goals Maintain/ Improve Skin Intergrity Surgical Incisions Healing Progression Toward Outcome/Goals Progressing Medicine Note: Length of Stay: 1 day Anticipated Discharge Destination: Home Tentative Discharge Date: 06/15/18 Discharged to: home
[2018-06-14] MEDS: Atorvastatin* 10 MG TAB PO SCH (16:47)
[2018-06-14] MEDS: Mometasone 220 MCG MDI INH SCH (19:21)
--- NOTE | 2018-06-14 20:25 | PN ---
Progress Note Date of Service: 06/14/18 Note: TRIPP SEGURA was visited. Therapy notes read and reviewed. He was discussed in interdisciplinary team rounds. He will be going home tomorrow. He is doing well. Current Medications: Active Medications Generic Name Dose Route Start Last Admin Trade Name Freq PRN Reason Stop Dose Admin Acetaminophen 650 mg 06/09/18 13:02 Tylenol Tab* PO Q6H PRN FEVER/PAIN Albuterol 2 puff 06/09/18 20:22 Ventolin Hfa Inhaler* INH Q6H PRN WHEEZING Aspirin 81 mg 06/10/18 09:00 06/14/18 09:48 Aspirin Ec Tab* PO 81 mg DAILY SACHIN Administration Atorvastatin Calcium 15 mg 06/09/18 17:00 06/14/18 16:47 Lipitor* PO 15 mg 1700 SACHIN Administration Docusate Sodium 100 mg 06/09/18 21:00 06/14/18 19:23 Colace Cap* PO Not Given BID SACHIN Heparin Sodium (Porcine) 5,000 units 06/09/18 14:00 06/14/18 14:29 Heparin Vial(*) SUBCUT 5,000 units Q8HR SACHIN Administration Ibuprofen 400 mg 06/11/18 11:36 06/13/18 21:41 Motrin Tab* PO 400 mg Q6H PRN Administration moderate pain Ibuprofen 200 mg 06/11/18 11:37 06/14/18 12:09 Advil Tab* PO 200 mg Q6H PRN Administration mild Pain Mometasone Furoate 1 puff 06/09/18 19:00 06/14/18 19:21 Asmanex 220 Mcg Mdi * INH 1 puff DAILY@1900 SACHIN Administration Pantoprazole Sodium 40 mg 06/10/18 09:00 06/14/18 09:48 Protonix Tab* PO 40 mg DAILY SACHIN Administration Senna 2 tab 06/09/18 13:02 Senokot Tab* PO BEDTIME PRN CONSTIPATION Solifenacin 5 mg 06/11/18 21:00 06/13/18 21:39 Vesicare(Nf) PO 5 mg BEDTIME SACHIN Administration Tamsulosin HCl 0.4 mg 06/10/18 09:00 06/14/18 09:48 Flomax Cap* PO 0.4 mg DAILY SACHIN Administration Vancomycin HCl 125 mg 06/09/18 17:00 06/14/18 16:48 Vancomycin Cap* PO 06/17/18 23:00 125 mg QID SACHIN Administration Zolpidem Tartrate 10 mg 06/09/18 20:21 06/13/18 21:46 Ambien Tab* PO 10 mg BEDTIME PRN Administration SLEEP Vital Signs: Vital Signs Temp Pulse Resp BP Pulse Ox 97.3 F 61 18 132/72 100 06/14/18 16:05 06/14/18 15:51 06/14/18 15:51 06/14/18 15:51 06/14/18 16:50 Exam: HEENT: EOMI LUNGS: Clear to auscultation HEART: Regular ABDOMEN: soft. Cholecystostomy tube in place. Some tape blisters at borders of DSD where tape was NEUROLOGIC: alert and oriented. muscle strength 5/5 Assessment/Plan: 1. Septic shock due to ascending cholangitis: Received IV Zosyn at [facility]. PT/ OT 2. C diff: Vancomycin orally through June 17 3. PEA Arrest with CPR and Epi, ROSC: Will need Nuclear stress test, cardiology F/U 4. ERCP with biliary stent: LFTs have normalized. Has T-tube. GI Follow up 5. DVT Prophylaxis: Heparin S/Q 6. Advanced Directives: Full code 06/14/18 20:25
[2018-06-14] MEDS: SOLIFENACIN 5 MG PO SCH (20:49)
[2018-06-14] MEDS: Ibuprofen TAB* 400 MG PO PRN (20:49)
[2018-06-14] MEDS: Zolpidem TAB* 10 MG PO PRN (21:29)
[2018-06-15] MEDS: Heparin VIAL(*) 5000 UNITS/ML VIAL (FIVE THOUSAND) SUBCUT SCH (05:27)
[2018-06-15 06:19] VITALS: BP 134/83
[2018-06-15] MEDS: Tamsulosin CAP* 0.4 MG PO SCH (09:21)
[2018-06-15] MEDS: Aspirin EC TAB* 81 MG TAB.EC PO SCH (09:21)
[2018-06-15] MEDS: Vancomycin CAP* 125 MG CAP PO SCH (09:21)
[2018-06-15] MEDS: Pantoprazole TAB * 40 MG TAB PO SCH (09:21)
[2018-06-15] MEDS: Ibuprofen TAB* 200 MG PO PRN (09:22)
[2018-06-15] MEDS: Docusate CAP* 100 MG PO SCH (09:23)
--- NOTE | 2018-06-15 15:56 | CONS ---
GASTROENTEROLOGY CONSULT: DATE OF CONSULT: 06/14/18 REFERRING PHYSICIANS: Dr. Austen Liu, Dr. Chaparrita Scales. REASON FOR CONSULT: History of septic shock secondary to ascending cholangitis , now with common duct stent in place and cholecystostomy tube, awaiting definitive treatment after rehabilitation. 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 He toughed it out, but became more symptomatic on 05/29/18. When he came to the emergency room, he was already appearing shocky. He had a low-grade fever and a normal white count. His LFTs were markedly abnormal with a bilirubin of 7 and his INR was elevated. Blood cultures were taken (later came back 07/21 Klebsiella pneumoniae) and as there was no ERCP coverage, attempt to transfer him was made. There was no bed available at [facility]. [facility] was not able to answer immediately. He developed the need for Levophed and then later a vasopressin drip. He was transferred via helicopter to [facility]. Urgent ERCP was being arranged around 11 p.m. In the ERCP suite, he went pulseless and had to undergo cardiopulmonary resuscitation for 6 to 10 minutes. Those records are not available. The urgent ERCP successfully placed a 10-British 10 cm stent into the common duct with discharge of pus. No sphincterotomy was done. He was then followed in the ICU. A cholecystostomy tube was placed. The surgery consult and imaging reports are not available. He did improve rapidly, but was greatly deconditioned. A stool test was positive for C. diff and he was started on vancomycin. On 06/09/18, he was transferred to the rehab center here. PAST MEDICAL HISTORY: 1. Gallstones - seen on ultrasound, 05/29/18. 2. Common bile duct stones - seen on ERCP, 05/29/18. 3. History of prostate problems. 4. History of dyslipidemia - previously cared for by his primary care, Dr. Nelson Washington. 5. Spinal stenosis. 6. Status post carpal tunnel surgery. 7. BPH. SOCIAL HISTORY: He is and his , Mallory, is in good health. She is a retired elementary supervisor. He has 3 children, with his son being an infectious disease specialist at an academic center. The daughter lives in [place], [place]. Another son in a swimming accident. REVIEW OF SYSTEMS: He has no history of seizures, TIA, syncope, heart problems , angina, viral hepatitis, renal stones, rectal bleeding, abdominal surgery. 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 He did not seek medical attention for that. He has had regular colonoscopies by Dr. Washington. PHYSICAL EXAM: He is a somewhat tired and slightly pale appearing older man, in no distress. He is clearly alert and reciting all the details without hesitancy. HEENT exam is unremarkable. There is no icterus. He has no adenopathy. Lungs are clear and heart sounds are regular. The abdomen shows a right subcostal drain. The abdomen, otherwise, is symmetric and firm. Rectal: Deferred. Extremities show 1+ to 2+ edema up to mid tibia. He is alert and oriented and moves all 4 extremities equally. There is no asterixis. IMPRESSION: This 77-year-old man is recuperating nicely from an episode of septic shock and a prolonged ICU stay. Some additional time to nutritionally rehabilitate would be useful. He does need to have cardiac clearance. He indicates a preference to having the rest of his care here in [place]. That is likely to be fine based on the workup yet to occur. Again, he will be getting cardiac consult and appropriate testing and then Dr. Cagle, who has consulted and will review the [facility] records, will do a cholecystectomy and then his stent can be removed and a sphincterotomy done with clearance of the duct. [id number]/[facility] #: [id number] [facility]
--- NOTE | 2018-06-15 20:43 | DS ---
DISCHARGE SUMMARY: DATE OF ADMISSION: 06/09/18 DATE OF DISCHARGE: 06/15/18 DISCHARGE DIAGNOSES: 1. Septic shock from ascending cholangitis. 2. Pulse electrical activity arrest. 3. Status post stenting of common bile duct. 4. Clostridium difficile colitis. 5. Arthritis. 6. Prostatic hypertrophy. HISTORY OF ILLNESS AND HOSPITAL COURSE: For complete history of the events leading up to his rehab stay, please see the history and physical dictated by me on 06/09/18. While on the rehab unit, the patient remained fairly stable from a medical point of view. His cholecystostomy site was clean and continued to drain small amounts of biliary fluid. His LFTs were normal. He continued on oral vancomycin for his C. difficile colitis. He did have an elevated total bilirubin at 1.2, but otherwise was stable. The patient felt good while on the rehab unit and ate normal flood, with normal bowel movements. He was seen by both Physical Therapy and Occupational Therapy while on the rehab unit. He made good gains with both disciplines. With physical therapy at the time of admission, the patient required contact guard to transfer, he was able to ambulate contact guard. With occupational therapy, he was contact guard for toileting and toilet transfers. He was min assist for upper body dressing, mod assist for lower body dressing. By the time of discharge, he was independent in all activities. He was able to ambulate 600 feet without an assistive device. He was able to go up and down a flight of stairs. We did have a Gastroenterology consult done with Dr. Franco while on the rehab unit. The patient was discharged home on 06/15/18. DISCHARGE DIET: Regular. DISCHARGE MEDICATIONS: 1. Aspirin 81 mg daily. 2. Asmanex 220 mcg 1 puff daily. 3. VESIcare 5 mg at bedtime. 4. Ambien 10 mg at bedtime as needed. 5. Flomax 0.4 mg daily. 6. Zocor 30 mg daily. 7. Prevacid 15 mg daily. 8. Saw [place] 450 mg daily. 9. Vancomycin 125 mg 4 times a day for 2-1/2 days, finishing in the evening of 06/17/18. SERVICES AFTER DISCHARGE: The patient can go to the [facility] as well as follow up with his primary care doctor, Dr. Scales. He will also need to follow up with the Gastroenterology team in [facility]. He will also need to follow up with a market news reporter. He prefers to do that here with Dr. Vasquez. TIME SPENT: Time for this discharge was approximately 50 minutes, greater than half of that was spent with his and daughter discussing post-rehab therapies, appointments, and medications. [id number]/[facility] #: [id number] JOSE ROBERTO
== END 2018-06-15 12:00 | disposition home or self-care (01) | DRG 945 ==
LOC: PMRU 12:40
PROVIDERS: ADMIT Physical Medicine & Rehabilitation; ATTEND Physical Medicine & Rehabilitation
PROC: F07Z5ZZ Bed Mobility Treatment (ICD-10-PCS; principal; 2018-06-07)
PROC: F07Z9ZZ Gait Training/Functional Ambulation Treatment (ICD-10-PCS; 2018-06-07)
PROC: F07Z8ZZ Transfer Training Treatment (ICD-10-PCS; 2018-06-07)
PROC: F08Z0ZZ Bathing/Showering Techniques Treatment (ICD-10-PCS; 2018-06-07)
PROC: F08Z1ZZ Dressing Techniques Treatment (ICD-10-PCS; 2018-06-07)
PROC: F08Z3ZZ Feeding/Eating Treatment (ICD-10-PCS; 2018-06-07)
PROC: F08Z2ZZ Grooming/Personal Hygiene Treatment (ICD-10-PCS; 2018-06-07)
PROC: F08Z4ZZ Home Management Treatment (ICD-10-PCS; 2018-06-07)
DX: Z51.89 Encounter for other specified aftercare (principal); A04.72 Enterocolitis due to Clostridium difficile, not specified as recurrent; I42.8 Other cardiomyopathies; R53.1 Weakness; K80.20 Calculus of gallbladder without cholecystitis without obstruction; M19.90 Unspecified osteoarthritis, unspecified site; N40.0 Benign prostatic hyperplasia without lower urinary tract symptoms; E78.5 Hyperlipidemia, unspecified; R23.8 Other skin changes; Z79.82 Long term (current) use of aspirin; Z79.899 Other long term (current) drug therapy; Z88.8 Allergy status to other drugs, medicaments and biological substances; Z93.59 Other cystostomy status; Z98.890 Other specified postprocedural states
CPT/HCPCS: 36415; 80053; 85025; A9270-GY; J1644

== ENCOUNTER → 2018-07-13 12:26 | Day surgery (SDC) | payer MEDICARE, OTHER ==
[~2018-07-13 12:26] MED LIST: Buffered Lidocaine 1% SYRIN* 1 ML/SYRINGE INTRADERM ONE; Cisatracurium* 2 MG/ML MDV 5 ML ONE; Glycopyrrolate IV* 0.2 MG/ML 1 ML VIAL ONE; Lactated Ringers 1000 ML Bag* 1,000 ML IV SCH; Lidocaine 2% PF * 5 ML VIAL ONE; Naloxone* 0.4 MG/ML 1 ML VIAL IV PRN; Neostigmine Methylsulfate* 1 MG/ML 10 ML VIAL (1 mg/ml) ONE; Ondansetron INJ* 2 MG/ML VIAL IV PRN; Piperacillin/Tazobac ADVAN(*) 3.375 GM in NS 0.9% 100 ML* 100 ML IVPB ONE; Propofol* 10 MG/ML 20 ML BTL ONE; fentaNYL* 50 MCG/ML 2 ML VIAL (100 MCG VIAL) IV PRN; fentaNYL* 50 MCG/ML 2 ML VIAL (100 MCG VIAL) ONE
[2018-07-13 21:02] VITALS: BP 157/95
--- NOTE | 2018-07-14 13:44 | PRO ---
DATE: 07/13/18 - [facility] REFERRING PHYSICIAN: Dr. Chaparrita Scales.* PROCEDURE: ERCP and removal of previous 10-Belarusian common bile duct stent; sphincterotomy of ampulla 13 to 14 mm; balloon extraction, common bile duct stones and copious sludge. 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 He was jaundiced, septic, and had an INR that was grossly elevated. He had a stent placed with IV antibiotics and no sphincterotomy was possible. He arrested on the ERCP table. He had since rehabilitated and feels much better. He did have a positive C. diff test at [facility]. It was still felt advisable given the uncertainty of the ERCP to give a single dose of prophylactic antibiotic with this procedure and his antibiogram showed he was resistant to ampicillin, so Zosyn was chosen. Informed consent had been obtained during the sequence of discussions as an outpatient. ENDOSCOPIST: Dr. Franco. ANESTHESIA: Dr. Rae. FINDINGS: He is a slender, healthy-appearing, elderly man, in no distress. He appears quite vigorous. Abdomen is soft and nontender. There is a right flank cholecystostomy tube that has a little bit of gravel in it. FINDINGS: He was positioned on the OR table. The side-viewing endoscope was introduced with ease into the stomach. Esophagus - 20% views especially distally were normal. Stomach - 56% views were normal. The pylorus appeared normal. Duodenum - the bulb and second and third portions appeared normal. The previous stent was present. It appeared to be clogged internally, but was providing an avenue for bile externally. Snare was used to remove this foreign body. It was brought out through the mouth. The patient was reintubated. A 20-mm wire sphincterotome was used to approach the somewhat edematous papilla. It was bowed about 45 degrees. The wire advancement of the wire went into the common duct. The wire was placed deeply and then locked in the short wire system. Cholangiogram displayed a great deal of common bile duct stones and filling defects in general. A sphincterotomy was done in 1 to 2 mm increments in a 1 o'clock orientation and bile was spilling. Exchange was made for a 9 to 12 mm balloon and this was used to sequentially remove at least 6 stones, other fragments, copious sludge, but nothing appearing grossly infected. Dye drained virtually immediately. Two balloon occlusion cholangiograms were done with immediate drainage of the dye. There was a small amount of dye that seemed to persist in the left system, but it was diminishing as the procedure progressed. The 12 mm balloon came through the papilla easily without any resistance. Again, there was free flow of bile and it appeared that a stent was not necessary. IMPRESSION: 1. Removal of previous common bile duct stent. 2. Endoscopic sphincterotomy of edematous papilla. 3. Balloon removal of common bile duct stones. 4. Gallbladder pathology with cholecystostomy tube in place - he has an OR provisional date in a week. [id number] #: [id number] MTDD
== END | disposition home or self-care (01) ==
LOC: OR 12:26
PROVIDERS: ATTEND Internal Medicine Gastroenterology
DX: K80.40 Calculus of bile duct with cholecystitis, unspecified, without obstruction (principal); K80.80 Other cholelithiasis without obstruction; D64.9 Anemia, unspecified; Z86.74 Personal history of sudden cardiac arrest; I45.10 Unspecified right bundle-branch block; E78.00 Pure hypercholesterolemia, unspecified
CPT/HCPCS: 74330; C1769; J2543; J2704; J2710; J3010

== ENCOUNTER → 2018-07-19 09:16 | Day surgery (SDC) | payer MEDICARE, OTHER ==
[~2018-07-19 09:16] MED LIST changes: +Bupivacaine 0.25% EPI 200,000* 30 ML SDV ONE; -Cisatracurium* 2 MG/ML MDV 5 ML ONE; +Dexamethasone IV* 4 MG/ML 1 ML (4 MG) IV SLOW PU ONE; +Dexamethasone IV* 4 MG/ML 1 ML (4 MG) ONE; +DiMENhydriNATE IV* 50 MG/ML VIAL IV PUSH PRN; +EPHEDrine (Pressors)* 50 MG/ML VIAL ONE; +Famotidine IV* 10 MG/ML 2 ML (20 mg) IV ONE; +Famotidine IV* 10 MG/ML 2 ML (20 mg) ONE; +HYDROcodone/ACETAMIN 5-325 MG* 1 TAB PO PRN; +Ketorolac INJ* 30 MG/ML 1 ML VIAL ONE; +Midazolam* 1 MG/ML 2 ML VIAL (2 MG) ONE; -Neostigmine Methylsulfate* 1 MG/ML 10 ML VIAL (1 mg/ml) ONE; +Neostigmine Methylsulfate* 3 MG/3 ML SYRINGE ONE; -Ondansetron INJ* 2 MG/ML VIAL IV PRN; +Ondansetron INJ* 2 MG/ML VIAL ONE; +Phenylephrine 40 MCG/ML SYRINGE ONE; -Piperacillin/Tazobac ADVAN(*) 3.375 GM in NS 0.9% 100 ML* 100 ML IVPB ONE; +Rocuronium* 10 MG/ML VIAL ONE; +ceFAZolin 2 GM in NS PREMIX(*) 2 GM/100 ML BAG IVPB ONE; +oxyCODONE/Acetamin 5/325 MG* TAB PO PRN
[2018-07-19 15:35] VITALS: BP 117/65
--- NOTE | 2018-07-19 17:44 | OP ---
CC: Chaparrita Scales MD; Little Issa MD; Bo Franco MD * DATE OF OPERATION: 07/19/18 - SDS DATE OF : 38 SURGEON: Sam Cagle MD COMPENSATION EXPERT: NESTOR Morgan ANESTHESIOLOGIST: Julio Cesar Tarango MD ANESTHESIA: General endotracheal. PRE-OP DIAGNOSIS: Symptomatic gallstones. POST-OP DIAGNOSIS: Symptomatic gallstones. OPERATIVE PROCEDURE: Laparoscopic cholecystectomy. ESTIMATED BLOOD LOSS: Minimal. IV FLUIDS: Crystalloid. SPECIMEN: Gallbladder. DRAIN: None. COMPLICATIONS: None. COUNTS: The instruments, needle, and sponge counts were correct. DESCRIPTION OF PROCEDURE: The patient was brought to the operating room and placed on the table supine. Sequential compression devices were placed on both lower extremities. General anesthesia was administered. The indwelling pigtail catheter in the gallbladder was removed and then the abdomen was prepped and draped in the usual sterile fashion and a time-out was performed. Local anesthetic was infiltrated into the skin and soft tissue prior to making each incision. Entry into the abdomen was through a curvilinear infraumbilical incision using an open technique. After accessing the peritoneal cavity, a 12- mm trocar was placed and carbon dioxide was insufflated to a pressure of 15 mmHg. Under direct visualization, 5-mm trocars were placed, 1 in the subxiphoid position and 2 in the right upper quadrant. There were adhesions noted from the gallbladder to the anterior abdominal wall at the site where the cholecystostomy tube had been. This was taken down using combination of sharp dissection and cautery. Gallbladder was then retracted by grasping the fundus and retracting it cephalad. There were numerous adhesions to the transverse colon and duodenum and these were taken down using sharp dissection. The infundibulum was identified. The peritoneum investing the gallbladder here was incised with cautery and dissected free with scissors and the dissection proceeded in both medial and lateral aspect, so that the cystic duct and then cystic artery were each dissected out. After obtaining critical view, these structures doubly clipped and divided and the gallbladder was freed from attachments in the gallbladder fossa using the cautery and staying in an avascular plane. Once the gallbladder was freed, it was extracted through the umbilical site. Hemostasis was assured. The cystic duct was further secured with a Vicryl Endoloop. Irrigation was performed until clear. Ports removed under direct visualization, carbon dioxide was released from the abdomen. The umbilical wound was closed with [id number] Vicryl suture, and then the skin incisions were closed with 4-0 Monocryl in a subcuticular fashion. Steri- Strips were applied. The patient tolerated the procedure well, was extubated and transferred to recovery room in stable condition. [id number]/[facility] #: [id number] JOSE ROBERTO
== END | disposition home or self-care (01) ==
LOC: OR 09:16
PROVIDERS: ATTEND Surgery
DX: K80.12 Calculus of gallbladder with acute and chronic cholecystitis without obstruction (principal); I45.10 Unspecified right bundle-branch block; E78.5 Hyperlipidemia, unspecified; J45.909 Unspecified asthma, uncomplicated; K21.9 Gastro-esophageal reflux disease without esophagitis; M19.91 Primary osteoarthritis, unspecified site
CPT/HCPCS: 88304; J0690; J1100; J1885; J2250; J2405; J2704; J2710; J3010

== ENCOUNTER 2018-10-25 18:51 | Emergency (ER) | payer MEDICARE, OTHER | END 2018-10-25 19:00 | disposition left against medical advice (07) | LOC: UCEAST 18:51 | DX: Z53.21 Procedure and treatment not carried out due to patient leaving prior to being seen by health care provider (principal) ==

== ENCOUNTER 2018-10-25 19:15 | Emergency (ER) | payer MEDICARE, OTHER ==
[2018-10-25] MEDS ORDERED: NS 0.9% 1000 ML** 1,000 ML IV.FLUID IV ONE (20:10)
--- NOTE | 2018-10-25 21:30 | ED ---
HPI Febrile Illness - HPI Summary HPI Summary: Patient is a 78 year old M presenting to the [facility] accompanied by with a chief complaint of a fever 102 since 18:00 today 10/25/18. The patient rates the pain 2/10 in severity. Symptoms aggravated by nothing. Symptoms alleviated by nothing. Patient reports insomnia, fatigue, weakness, decreased appetite. He reports headache rated 2/10 in severity and subdiaphragmatic discomfort rated 2/ 10 in severity. Patient denies rash. He denies recent tick bites. PMHx toxic shock syndrome. No PMHx Lyme disease. - History of Current Complaint Chief Complaint: EDFever Time Seen by Provider: 10/25/18 21:12 Hx Obtained From: Patient, Family/[place] Tender - Onset/Duration: Started Hours Ago - 18:00 today 10/25/18, Still Present Timing: Constant Current Severity: Mild Pain Intensity: 2 Pain Scale Used: 0-10 Numeric Aggravating Factors: Nothing Alleviating Factors: Nothing Associated Signs and Symptoms: Negative - rash, Other: - reports insomnia, fatigue, weakness, decreased appetite. He reports headache rated 2/10 in severity and subdiaphragmatic discomfort rated 2/10 in severity. - Allergy/Home Medications Allergies/Adverse Reactions: Allergies Allergy/AdvReac Type Severity Reaction Status Date / Time meprobamate Allergy Intermediate Rash Verified 10/19/18 15:09 chlordiazepoxide Allergy Rash Verified 10/19/18 15:09 [From Librium] Tetracyclines Allergy oral Verified 10/19/18 15:09 swelling environmental Allergy Unknown Uncoded 10/19/18 15:09 Reaction Details narcotic medications AdvReac sensitive Uncoded 10/19/18 15:09 to them Home Medications: Home Medications Lisinopril [Lisinopril 2.5 MG-] 2.5 mg PO DAILY 10/25/18 [History Confirmed 01/05] PMH/Surg Hx/FS Hx/Imm Hx Previously Healthy: No Endocrine/Hematology History: Denies: Hx Diabetes Cardiovascular History: Reports: Hx Hypertension - CONTROLLED BY MEDS, Other Cardiovascular Problems/Disorders - coded durring ERCP MAY 2018, STATES NORMAL STRESS TEST 06/2018 Denies: Hx Pacemaker/ICD Respiratory History: Reports: Hx Asthma - HX OF IN THE PAST, Hx Seasonal Allergies, Other Respiratory Problems/Disorders - 05/2018VENTILATED FOR SEVERAL DAYS AFTER CARDIAC ARREST GI History: Reports: Hx Gastroesophageal Reflux Disease - "RARE", Hx Jaundice - 05/2018, Hx Ulcer - 1960 PEPTIC ULCER, Other GI Disorders - 1959 peptic ulcer Denies: Hx Cirrhosis History: Reports: Hx Benign Prostatic Hyperplasia, Hx Kidney Stones - HX OF 20+ YEARS AGO Denies: Other Problems/Disorders Musculoskeletal History: Reports: Hx Arthritis, Hx Tendonitis - CHRONIC BICEPS, Other Musculoskeletal History - torn achilles tendon LEFT Denies: Hx Rheumatoid Arthritis, Hx Osteoporosis Sensory History: Reports: Hx Cataracts - BILAT., Hx Contacts or Glasses - GLASSES, Hx Hearing Aid - BILAT., Hx Hearing Problem Denies: Hx Glaucoma Opthamlomology History: Reports: Hx Cataracts - BILAT., Hx Contacts or Glasses - GLASSES Denies: Hx Glaucoma Neurological History: Denies: Other Neuro Impairments/Disorders Psychiatric History: Denies: Hx Panic Disorder - Cancer History Hx Chemotherapy: No - Surgical History Surgery Procedure, Year, and Place: CIRCUMCISION, APPENDECTOMY,T&A,RIGHT KNEE REPAIR,RIGHT INGUINAL HERNIA,DENICE. CARPAL TUNNEL REPAIRS, RIGHT SHOULDER ARTHROPLASTY,LYMPH NODE BX WITH NEGATIVE RESULTS,. CHOLECYSTECTOMY 07/2018 Hx Anesthesia Reactions: No Infectious Disease History: Yes Infectious Disease History: Reports: Traveled Outside the [place] in Last 30 Days - [place] Denies: Hx Hepatitis - Family History Known Family History: Positive: Other - Colon polyps - Social History Alcohol Use: Rare Hx Substance Use: No Substance Use Type: Reports: None Hx Tobacco Use: No Smoking Status (MU): Never Smoked Tobacco Have You Smoked in the Last Year: No Review of Systems Positive: Fever, Fatigue Positive: Other - decreased appetite Negative: Rash Positive: Headache, Weakness Psychological: Other - insomnia All Other Systems Reviewed And Are Negative: Yes Physical Exam - Summary Physical Exam Summary: Appearance: Well-appearing, Well-nourished, lying in bed comfortably Skin: Warm, dry, no obvious rash Eyes: sclera anicteric, no conjunctival pallor ENT: mucous membranes moist, pharynx appears normal Neck: Supple, nontender Respiratory: Clear to auscultation, no signs of respiratory distress Cardiovascular: Normal S1, S2. No murmurs. Normal distal pulses in tibial and radial bilaterally. Abdomen: Soft, nontender, normal active bowel sounds present Musculoskeletal: Normal, Strength/ROM Intact Neurological: A&Ox3, awake and alert, mentation is normal, speech is fluent and appropriate Psychiatric: affect is normal, does not appear anxious or depressed Triage Information Reviewed: Yes Vital Signs On Initial Exam: Initial Vitals Temp Pulse Resp BP Pulse Ox 101.5 F 104 20 131/82 97 10/25/18 19:20 10/25/18 19:20 10/25/18 19:20 10/25/18 19:20 10/25/18 19:20 Vital Signs Reviewed: Yes Diagnostics - Vital Signs Vital Signs Temp Pulse Resp BP Pulse Ox 10/25/18 21:08 93 19 131/80 99 10/25/18 21:00 94 28 94 10/25/18 19:20 101.5 F 104 20 131/82 97 - Laboratory Result Diagrams: 10/25/18 21:18 10/25/18 21:18 Lab Statement: Any lab studies that have been ordered have been reviewed, and results considered in the medical decision making process. - Radiology Chest X-Ray Radiology Interpretation Completed By: ED Physician Summary of Radiographic Findings: No acute process. Pending official report. Re-Evaluation - Re-Evaluation First Eval Re-Evaluation Time: 23:33 Comment: Physician discussed discharge with patient. Patient agrees to discharge. Course/Dx - Course Course Of Treatment: Patient is a 78 year old M presenting to the [facility] accompanied by with a chief complaint of a fever 102 since 18:00 today . The patient rates the pain 2/10 in severity. Patient reports insomnia, fatigue, weakness, decreased appetite. Physical exam reveals no abnormalities. Test results with no significant abnormalities except Hgb 13.9, Hct 40, Absolute Lymphs 0.5, Sodium 133, Chloride 98, Creatinine 1.22, and Glucose 126. Chest X-Ray reveals no acute process. In the ED course the patient was given ceftriaxone sodium 1 gm in sodium chloride 100 mls/hr, acetaminophen 975 mg, and sodium chloride 2,180 ml. Patient will be discharged home. The patient was instructed to follow up with Dr. Chaparrita Scales, primary care physician. The patient was given an empiric dose of a broad spectrum antibiotic. The patient is agreeable to this discharge plan. - Diagnoses Provider Diagnoses: Fever Discharge - Sign-Out/Discharge Documenting (check all that apply): Patient Departure - Discharge Patient Received Moderate/Deep Sedation with Procedure: No - Discharge Plan Condition: Good Disposition: HOME Patient Education Materials: Fever in Adults (ED) Referrals: Chaparrita Scales MD [Primary Care Provider] - Additional Instructions: Our evaluation tonight did not show any source for your fever. For now, I am giving you an empiric dose of a broad spectrum antibiotic, which should cover you until we get preliminary culture results tomorrow. Often we get clues to a diagnosis as the illness evolves, so if you get new symptoms like a rash, a cough, abdominal pain, etc., either we or your primary physician should check on that. - Billing Disposition and Condition Condition: GOOD Disposition: Home - Attestation Statements Document Initiated by Eva: Yes Documenting Scribe: Roxanna Romero Provider For Whom Eva is Documenting (Include Credential): Amrik Palomares MD Scribe Attestation: Bryanna Hernandez Alison Kim, scribed for Amrik Palomares MD on 10/27/18 at 0403. Scribe Documentation Reviewed: Yes Provider Attestation: The documentation as recorded by the Bryanna nxi Alison Kim accurately reflects the service I personally performed and the decisions made by , Amrik Palomares MD Status of Eva Document: Viewed
[2018-10-25 21:40] LABS: Urine Appearance Clear; Urine Bilirubin Negative (Negative); Urine Blood Negative (Negative); Urine Color Yellow; Urine Glucose Negative (Negative); Urine Ketones Negative (Negative); Urine Nitrite Negative (Negative); Urine Protein Negative (Negative); Urine Specific Gravity 1.019 (1.010-1.030); Urine Urobilinogen Negative (Negative)
[2018-10-25 21:40] LABS: ABS Lymphocytes 0.5 10^3/ul (1.0-4.8); ABS Monocytes 0.5 10^3/ul (0-0.8); Eosinophil % 0.1 %; Hematocrit 40 % (42-52); Hemoglobin 13.9 g/dL (14.0-18.0); Lymphocyte % 9.5 %; Mean Corpuscular HGB Conc 35 g/dL (31-36); Mean Corpuscular Hemoglobin 30 pg (27-31); Mean Corpuscular Volume 88 fL (80-94); Mean Platelet Volume 7.4 fL (7.4-10.4); Platelet Count 195 10^3/uL (150-450); Red Blood Count 4.57 10^6 /uL (4.18-5.48); Red Cell Distribution Width 14 % (10-15); White Blood Count 5.1 10^3/uL (3.5-10.8)
[2018-10-25] MEDS ORDERED: Acetaminophen TAB* 325 MG PO ONE (21:47)
[2018-10-25 21:48] LABS: Activated Partial Thrombo Time 35.6 seconds (26.0-38.0); INR 1.09 (0.82-1.09)
[2018-10-25 21:56] LABS: Albumin 4.1 g/dL (3.2-5.2); Albumin/Globulin Ratio 1.3 (1-3); BUN/Creatinine Ratio 19.7 (8-20); Calcium 10.2 mg/dL (8.6-10.3); EGFR African American 69.3 (>60); EGFR Non-African American 57.3 (>60); Globulin 3.1 g/dL (2-4); Potassium 4.2 mmol/L (3.5-5.0); Total Bilirubin 0.7 mg/dL (0.2-1.0); Total Protein 7.2 g/dL (6.4-8.9)
[2018-10-25 21:57] LABS: Troponin I 0.01 ng/mL (<0.04)
[2018-10-25] MEDS ORDERED: cefTRIAXone(*) 1 GM in NS 0.9% 50 ML* 50 ML IVPB ONE (23:38)
[2018-10-26 00:19] VITALS: BP 144/84
== END 2018-10-26 00:19 | disposition home or self-care (01) ==
LOC: ED 19:15
DX: R50.9 Fever, unspecified (principal); Z88.1 Allergy status to other antibiotic agents; Z88.5 Allergy status to narcotic agent; Z88.8 Allergy status to other drugs, medicaments and biological substances; I10 Essential (primary) hypertension; Z79.899 Other long term (current) drug therapy
CPT/HCPCS: 36415; 71045; 80053; 81003; 83605; 84484; 85025; 85610; 85730; 87040; 96365; 99284; A9270-GY; J0696

== ENCOUNTER 2018-11-02 08:19 | Day surgery (SDC) | payer MEDICARE, OTHER ==
[~2018-11-02 08:19] MED LIST changes: +Acetaminophen TAB* 325 MG PO PRN; -Bupivacaine 0.25% EPI 200,000* 30 ML SDV ONE; -Dexamethasone IV* 4 MG/ML 1 ML (4 MG) IV SLOW PU ONE; -Dexamethasone IV* 4 MG/ML 1 ML (4 MG) ONE; -DiMENhydriNATE IV* 50 MG/ML VIAL IV PUSH PRN; -EPHEDrine (Pressors)* 50 MG/ML VIAL ONE; -Famotidine IV* 10 MG/ML 2 ML (20 mg) IV ONE; -Famotidine IV* 10 MG/ML 2 ML (20 mg) ONE; -Glycopyrrolate IV* 0.2 MG/ML 1 ML VIAL ONE; -HYDROcodone/ACETAMIN 5-325 MG* 1 TAB PO PRN; -Ketorolac INJ* 30 MG/ML 1 ML VIAL ONE; -Lactated Ringers 1000 ML Bag* 1,000 ML IV SCH; -Lidocaine 2% PF * 5 ML VIAL ONE; -Midazolam* 1 MG/ML 2 ML VIAL (2 MG) ONE; -Naloxone* 0.4 MG/ML 1 ML VIAL IV PRN; -Neostigmine Methylsulfate* 3 MG/3 ML SYRINGE ONE; -Ondansetron INJ* 2 MG/ML VIAL ONE; -Phenylephrine 40 MCG/ML SYRINGE ONE; -Propofol* 10 MG/ML 20 ML BTL ONE; -Rocuronium* 10 MG/ML VIAL ONE; -ceFAZolin 2 GM in NS PREMIX(*) 2 GM/100 ML BAG IVPB ONE; -fentaNYL* 50 MCG/ML 2 ML VIAL (100 MCG VIAL) IV PRN; -fentaNYL* 50 MCG/ML 2 ML VIAL (100 MCG VIAL) ONE; -oxyCODONE/Acetamin 5/325 MG* TAB PO PRN
[2018-11-02] MEDS ORDERED: Midazolam* 1 MG/ML 2 ML VIAL (2 MG) ONE (09:56)
--- NOTE | 2018-11-02 11:19 | OP ---
AMENDED REPORT NOW INCLUDES DATE OF OPERATION - ESIGNED BEFORE ADJUSTMENT * DATE OF OPERATION: 11/02/18 - [facility] DATE OF : 38 SURGEON: Torres Landaverde M.D. PREOPERATIVE DIAGNOSIS: Cataract, right eye. POSTOPERATIVE DIAGNOSIS: Cataract, right eye. OPERATIVE PROCEDURE: Extracapsular cataract extraction with intraocular lens implant, right eye. DESCRIPTION OF PROCEDURE: The patient was brought to the operating room after being given 1/2% Alcaine with epinephrine drops in the preoperative area. The eye was prepped and draped in the usual sterile fashion. Sterile drape and eyelid speculum were placed. Again, topical 1/2% Alcaine with epinephrine was given. A paracentesis incision was made at the 9 o'clock position with the No.75 blade. Clear cornea incision 2.2 x 2.2-mm was created at the 12 o'clock position starting at the anterior limbus using the 2.2-mm keratome. The anterior chamber was irrigated with 0.4 mL of 1% non-preservative intracameral lidocaine and filled with DisCoVisc. A capsulorrhexis was completed using the cystotome and the Utrata forceps. Hydrodissection was performed with balanced salt solution. The lens nucleus was removed with the Phacoemulsification handpiece without incident. Cortex was removed with the irrigation-aspiration handpiece. The capsular bag was re-inflated using DisCoVisc and an [id number] 22.5 implant was inserted with the shooter. The pupil was small, so a Malyugin ring was used to dilate the pupil prior to capsulorrhexis, removed after insertion of the lens. The irrigation-aspiration handpiece was used to remove all residual DisCoVisc. The eye was refilled with balanced salt solution and the wound checked and found to be watertight. Topical Maxitrol drops were given. Indication for complex cataract surgery: Pupillary abnormality requiring pupil dilation device. [id number] #: [id number] MTDD
[2018-11-02 11:57] VITALS: BP 117/69
[2018-11-02] MEDS ORDERED: Lidocaine 1% MPF ** 5 ML VIAL ONE (14:25)
[2018-11-02] MEDS ORDERED: Lidocaine 2% w/ EPI 1:200,000* 20 ML VIAL ONE (14:25)
[2018-11-02] MEDS ORDERED: Povidone Iodine 5% OPTH* 30 ML BTL ONE (14:25)
[2018-11-02] MEDS ORDERED: acetaZOLAMIDE TAB* 250 MG ONE (14:25)
[2018-11-02] MEDS ORDERED: Ketorolac 0.5% OPHTH (NF) 0.5 % 5 ML BTL ONE (14:25)
[2018-11-02] MEDS ORDERED: Proparacaine 0.5% OPHTH.SOL* 15 ML BTL ONE (14:25)
[2018-11-02] MEDS ORDERED: Phenylephrine OPHTH SOL 2.5%* 2 ML ONE (14:25)
[2018-11-02] MEDS ORDERED: Cyclopentolate 1% OPTH.SOL* 2 ML BTL ONE (14:25)
[2018-11-02] MEDS ORDERED: Neomycin/Polymy/Dex OPTH.SUSP* MAXITROL 0.1% 5 ML ONE (14:25)
== END 2018-11-02 11:12 | disposition home or self-care (01) ==
LOC: OREAST 08:19
PROVIDERS: ATTEND Specialist
DX: H25.11 Age-related nuclear cataract, right eye (principal); H21.561 Pupillary abnormality, right eye; M19.90 Unspecified osteoarthritis, unspecified site; J45.909 Unspecified asthma, uncomplicated; N40.0 Benign prostatic hyperplasia without lower urinary tract symptoms; E78.00 Pure hypercholesterolemia, unspecified; E78.5 Hyperlipidemia, unspecified; K21.9 Gastro-esophageal reflux disease without esophagitis; I45.10 Unspecified right bundle-branch block
CPT/HCPCS: A9270-GY; J2250; V2632